=== PATIENT | male | born 1940 | race Caucasian/White ===

== ENCOUNTER 2016-05-03 10:04 | Inpatient (IN) | payer MEDICARE ==
[2016-05-03] MEDS ORDERED: HYDROmorphone INJ* 1 MG/ML CARPUJECT SYRINGE IV ONE (10:48)
[2016-05-03] MEDS ORDERED: Ondansetron INJ* 2 MG/ML VIAL IV ONE (10:48)
[2016-05-03] MEDS ORDERED: Acetaminophen TAB* 325 MG PO ONE (10:48)
--- NOTE | 2016-05-03 11:15 | RAD ---
Indication: Sepsis. Single frontal view of the chest performed at 1100 hours was reviewed. Patient has not had a recent clinical breast exam. No mediastinal shift is noted. Heart is of normal size and configuration. There is some mild interstitial prominence consistent with vascular congestion.. IMPRESSION: INTERSTITIAL EDEMA CONSISTENT WITH VASCULAR CONGESTION. CARDIOMEGALY.
[2016-05-03 11:59] LABS: Add Diff/Slide Review? Manual Diff Added; Comments Flag Yes; Hematocrit 42 % (42-52); Hemoglobin 13.9 g/dl (14.0-18.0); Mean Corpuscular HGB Conc 33 g/dl (31-36); Mean Corpuscular Hemoglobin 29 pg (27-31); Mean Corpuscular Volume 89 fL (80-94); Mean Platelet Volume 8 um3 (7.4-10.4); Red Blood Count 4.77 10^6/ul (4.0-5.4); Red Cell Distribution Width 14 % (10.5-15); White Blood Count 5.9 10^3/ul (3.5-10.8)
[2016-05-03 12:02] LABS: Urine Bacteria Absent (Absent); Urine Bilirubin Negative (Negative); Urine Glucose Negative (Negative); Urine Nitrite Negative (Negative)
[2016-05-03 12:22] LABS: Albumin 3.5 g/dL (3.2-5.2); BUN/Creatinine Ratio 10.4 (8-20); Calcium 8.5 mg/dL (8.6-10.3); EGFR African American 98.7 (>60); EGFR Non-African American 76.8 (>60); Globulin 2.4 g/dL (2-4); Potassium 3.2 mmol/L (3.5-5.0); Total Bilirubin 2.9 mg/dL (0.2-1.0); Total Protein 5.9 g/dL (6.4-8.9)
[2016-05-03 12:24] LABS: Troponin I 0.01 ng/mL (<0.04)
[2016-05-03 12:29] LABS: Immature Granulocytes 8 % (0-9); Metamyelocytes % 1 % (0-2); Neutrophil % 90 % (38-83); RBC Morphology Normal (Normal)
[2016-05-03] MEDS ORDERED: Piperac/Tazob 3.375 gm in NS* 3.375 GM/100 ML BAG IVPB ONE ×2 (12:56→13:04)
[2016-05-03] MEDS ORDERED: NS 0.9% 1000 ML* 2,000 ML IV ONE (12:56)
[2016-05-03] MEDS ORDERED: Iohexol 300* (CONTRAST) 10 ML SDV IV ONE (13:20)
[2016-05-03] MEDS ORDERED: NS 0.9% 1000 ML* 1,000 ML IV ONE ×2 (13:51→23:45)
--- NOTE | 2016-05-03 13:57 | RAD ---
CLINICAL HISTORY: Abdominal pain COMPARISON: March 27, 2016 TECHNIQUE: Multiple contiguous axial CT scans were obtained of the abdomen and pelvis after the administration of intravenous contrast. Coronal and sagittal multiplanar reformations are submitted for review. Oral contrast was administered. Delayed images were obtained through the abdomen FINDINGS: LUNG BASES: There is dependent atelectasis bilaterally. LIVER: The liver is normal in shape, size, contour, and attenuation. BILE DUCTS: There is pneumobilia. There is moderate intrahepatic biliary dilatation. There is dilatation of the common duct up to 1.5 cm in size. A very stent is noted extending from the distal common duct to the duodenum. GALLBLADDER: Multiple gallstones are noted. There is no pericholecystic inflammatory change. PANCREAS: There is ill-defined soft tissue extending from the head of the pancreas along the superior mesenteric artery consistent with the mass noted on previous examinations.. There is mild pancreatic ductal dilatation. SPLEEN: Normal in size and appearance. UPPER GI TRACT: Evaluation of the gastrointestinal tract is limited by incomplete gastric distention. The upper GI tract is unremarkable. SMALL BOWEL AND MESENTERY: There is mild distention of the duodenum and proximal jejunum, without dilatation. Oral contrast reaches the distal jejunum. COLON: The colon is normal in contour, course, caliber. There is no pericolonic inflammatory change. ADRENALS: Normal bilaterally. KIDNEYS: The kidneys are normal in shape, size, contour, and axis. There is no hydronephrosis or nephrolithiasis. BLADDER: The bladder is smooth in contour. PELVIC ORGANS: The prostate is diffusely enlarged. The seminal vesicles are symmetric. AORTA: There is calcific atherosclerotic disease of the abdominal aorta and its branches, without aneurysmal dilatation IVC: Unremarkable LYMPH NODES: There are multiple subcentimeter short axis retroperitoneal lymph nodes ABDOMINAL WALL: There is no evidence for abdominal wall hernia. BONES AND SOFT TISSUES: Degenerative changes are noted of the spine OTHER: None IMPRESSION: 1. WHEN COMPARED TO MARCH 27, 2016, THERE IS INCREASING EXTRAHEPATIC AND INTRAHEPATIC BILIARY DILATATION, WITH PNEUMOBILIA. A BILIARY STENT IS NOTED. 2. AGAIN NOTED IS ILL-DEFINED SOFT TISSUE PANCREAS HEAD CONSISTENT WITH THE HISTORY OF PANCREATIC NEOPLASM. THERE IS MILD PANCREATIC DUCTAL DILATATION. 3. ATHEROSCLEROSIS. 4. MILD DISTENTION OF THE DUODENUM AND PROXIMAL SMALL BOWEL, WITHOUT DILATATION TO SUGGEST OBSTRUCTION. 5. CHOLELITHIASIS PRELIMINARY FINDINGS WERE DISCUSSED WITH DR. SCHERER AT APPROXIMATELY 1:54 PM ON MAY 03, 2016
--- NOTE | 2016-05-03 14:32 | ED ---
Jameel Lu Adam, scribed for Robert Riggs MD on 05/03/16 at 1031 . Abdominal Pain/Male - HPI Summary HPI Summary: Pt is a 75 year old male presenting with worsening abdominal pain since last night. He was diagnosed with pancreatic cancer last month and started chemo 7 days ago. He describes the pain as sharp and diffuse throughout his abdomen. Palpation aggravates the pain. Pt also reports 6 episodes of vomiting this morning and he states that he is still nauseous at this time. - History of Current Complaint Stated Complaint: VOMITING, ABD PAIN Time Seen by Provider: 05/03/16 10:11 Hx Obtained From: Patient Onset/Duration: Gradual Onset, Lasting Hours, Still Present Timing: Constant Severity Initially: Mild Severity Currently: Moderate Location: Diffuse Radiates: No Character: Sharp Aggravating Factor(s): Nothing Alleviating Factor(s): Nothing Associated Signs And Symptoms: Positive: Nausea, Vomiting - Allergies/Home Medications Allergies/Adverse Reactions: Allergies Allergy/AdvReac Type Severity Reaction Status Date / Time No Known Allergies Allergy Verified 03/27/16 08:31 Home Medications: Home Medications Ondansetron TAB* [Zofran Tab*] 4 mg PO Q4HR PRN 05/03/16 [History Confirmed ] Prochlorperazine TAB* [Compazine Tab*] 10 mg PO Q6H PRN 05/03/16 [History Confirmed 05/03/16] PMH/Surg Hx/FS Hx/Imm Hx Endocrine/Hematology History: Denies: Hx Diabetes Cardiovascular History: Reports: Hx Hypercholesterolemia Denies: Hx Hypertension - Surgical History Surgery Procedure, Year, and Place: eyes, STENT 03/21/16 Infectious Disease History: Denies: Traveled Outside the [place] in Last 30 Days - Family History Family History: No FHx hyperlipidemia. - Social History Occupation: Retired Lives: With Family - Alcohol Use: Occasionally Hx Substance Use: No Substance Use Type: Reports: None Hx Tobacco Use: Yes Smoking Status (MU): Light Every Day Tobacco Smoker Type: Cigarettes Length of Time of Smoking/Using Tobacco: 3 Have You Smoked in the Last Year: Yes Review of Systems Positive: Fever Positive: Abdominal Pain, Vomiting, Nausea All Other Systems Reviewed And Are Negative: Yes Physical Exam Triage Information Reviewed: Yes Vital Signs On Initial Exam: Initial Vitals Temp Pulse Resp BP Pulse Ox 102.5 F 105 30 138/75 95 05/03/16 10:33 05/03/16 10:33 05/03/16 10:33 05/03/16 10:33 05/03/16 10:33 Vital Signs Reviewed: Yes Appearance: Positive: Well-Appearing, No Pain Distress Skin: Positive: Warm, Skin Color Reflects Adequate Perfusion, Dry. Negative: Jaundiced Head/Face: Positive: Normal Head/Face Inspection Eyes: Positive: Normal ENT: Positive: Normal ENT inspection Neck: Positive: Supple, Nontender Respiratory/Lung Sounds: Positive: Clear to Auscultation, Breath Sounds Present Cardiovascular: Positive: RRR Abdomen Description: Positive: Guarding - Voluntary, Other: - Diffuse tenderness Bowel Sounds: Positive: Present Musculoskeletal: Positive: Normal Neurological: Positive: Normal Psychiatric: Positive: Normal, Affect/Mood Appropriate Diagnostics - Vital Signs Vital Signs Temp Pulse Resp BP Pulse Ox 05/03/16 13:44 82/50 05/03/16 13:30 98 86/55 91 05/03/16 13:03 101 85/48 94 05/03/16 13:00 105 84/49 94 05/03/16 12:57 102.2 F 05/03/16 12:55 107 93/54 93 05/03/16 12:53 106 93 05/03/16 11:33 24 05/03/16 10:51 96 05/03/16 10:33 102.5 F 105 30 138/75 95 - Laboratory Lab Results: Lab Results 05/03/16 05/03/16 05/03/16 Range/Units 11:30 11:30 11:30 WBC 5.9 (3.5-10.8) 10^3/ul RBC 4.77 (4.0-5.4) 10^6/ul Hgb 13.9 L (14.0-18.0) g/dl Hct 42 (42-52) % MCV 89 (80-94) fL MCH 29 (27-31) pg MCHC 33 (31-36) g/dl RDW 14 (10.5-15) % Plt Count 125 L (150-450) 10^3/ul MPV 8 (7.4-10.4) um3 Immature Gran % (Auto) 8 (0-9) % Absolute Neuts (auto) 5.8 (1.5-7.7) 10^3/ul Absolute Lymphs (auto) 0.1 L (1.0-4.8) 10^3/ul Absolute Monos (auto) 0 (0-0.8) 10^3/ul Absolute Eos (auto) 0 (0-0.6) 10^3/ul Absolute Basos (auto) 0 (0-0.2) 10^3/ul Absolute Nucleated RBC 0 10^3/ul Neutrophils % 90 H (38-83) % Band Neutrophils % 7 (0-8) % Lymphocytes % 2 L (25-47) % Metamyelocytes % 1 (0-2) % Normal RBC Morphology Normal (Normal) INR (Anticoag Therapy) 1.18 H (0.89-1.11) Sodium (133-145) mmol/L Potassium (3.5-5.0) mmol/L Chloride (101-111) mmol/L Carbon Dioxide (22-32) mmol/L Anion Gap (2-11) mmol/L BUN (6-24) mg/dL Creatinine (0.67-1.17) mg/dL Est GFR ( Amer) (>60) Est GFR (Non-Af Amer) (>60) BUN/Creatinine Ratio (8-20) Glucose (70-100) mg/dL Lactic Acid (0.5-2.0) mmol/L Calcium (8.6-10.3) mg/dL Total Bilirubin (0.2-1.0) mg/dL AST (13-39) U/L ALT (7-52) U/L Alkaline Phosphatase (34-104) U/L Troponin I (<0.04) ng/mL Total Protein (6.4-8.9) g/dL Albumin (3.2-5.2) g/dL Globulin (2-4) g/dL Albumin/Globulin Ratio (1-3) Lipase (11.0-82.0) U/L Urine Color Nell Urine Appearance Clear Urine pH 5.0 (5-9) Ur Specific [place] 1.013 (1.010-1.030) Urine Protein Negative (Negative) Urine Ketones Negative (Negative) Urine Blood 1+ H (Negative) Urine Nitrate Negative (Negative) Urine Bilirubin Negative (Negative) Urine Urobilinogen Negative (Negative) Ur Leukocyte Esterase Negative (Negative) Urine WBC (Auto) Absent (Absent) Urine RBC (Auto) 1+(3-5/hpf) H (Absent) Urine Bacteria Absent (Absent) Urine Glucose Negative (Negative) 05/03/16 05/03/16 Range/Units 11:30 11:30 WBC (3.5-10.8) 10^3/ul RBC (4.0-5.4) 10^6/ul Hgb (14.0-18.0) g/dl Hct (42-52) % MCV (80-94) fL MCH (27-31) pg MCHC (31-36) g/dl RDW (10.5-15) % Plt Count (150-450) 10^3/ul MPV (7.4-10.4) um3 Immature Gran % (Auto) (0-9) % Absolute Neuts (auto) (1.5-7.7) 10^3/ul Absolute Lymphs (auto) (1.0-4.8) 10^3/ul Absolute Monos (auto) (0-0.8) 10^3/ul Absolute Eos (auto) (0-0.6) 10^3/ul Absolute Basos (auto) (0-0.2) 10^3/ul Absolute Nucleated RBC 10^3/ul Neutrophils % (38-83) % Band Neutrophils % (0-8) % Lymphocytes % (25-47) % Metamyelocytes % (0-2) % Normal RBC Morphology (Normal) INR (Anticoag Therapy) (0.89-1.11) Sodium 137 (133-145) mmol/L Potassium 3.2 L (3.5-5.0) mmol/L Chloride 107 (101-111) mmol/L Carbon Dioxide 21 L (22-32) mmol/L Anion Gap 9 (2-11) mmol/L BUN 10 (6-24) mg/dL Creatinine 0.96 (0.67-1.17) mg/dL Est GFR ( Amer) 98.7 (>60) Est GFR (Non-Af Amer) 76.8 (>60) BUN/Creatinine Ratio 10.4 (8-20) Glucose 123 H (70-100) mg/dL Lactic Acid 3.6 H* (0.5-2.0) mmol/L Calcium 8.5 L (8.6-10.3) mg/dL Total Bilirubin 2.90 H (0.2-1.0) mg/dL AST 192 H (13-39) U/L ALT 167 H (7-52) U/L Alkaline Phosphatase 310 H (34-104) U/L Troponin I 0.01 (<0.04) ng/mL Total Protein 5.9 L (6.4-8.9) g/dL Albumin 3.5 (3.2-5.2) g/dL Globulin 2.4 (2-4) g/dL Albumin/Globulin Ratio 1.5 (1-3) Lipase 63 (11.0-82.0) U/L Urine Color Urine Appearance Urine pH (5-9) Ur Specific [place] (1.010-1.030) Urine Protein (Negative) Urine Ketones (Negative) Urine Blood (Negative) Urine Nitrate (Negative) Urine Bilirubin (Negative) Urine Urobilinogen (Negative) Ur Leukocyte Esterase (Negative) Urine WBC (Auto) (Absent) Urine RBC (Auto) (Absent) Urine Bacteria (Absent) Urine Glucose (Negative) Result Diagrams: 05/03/16 11:30 05/03/16 11:30 Lab Statement: Any lab studies that have been ordered have been reviewed, and results considered in the medical decision making process. - Radiology CXR Radiology Interpretation Completed By: Radiologist - IMPRESSION: INTERSTITIAL EDEMA CONSISTENT WITH VASCULAR CONGESTION. CARDIOMEGALY. - Additional Comments Diagnostic Additional Comments: Lactic Acid - 3.6 Troponin I - 0.01 Abdominal Pain Fem Course/Dx - Course Course Of Treatment: Mr. Cook presented with about 12 hours of abdominal pain. He pointed to his epigastrium but was tender diffusely with voluntary guarding. He was febrile and tachycardic but with a normal WBC's. This could be because of recent chemo. He was given antibiotics and fluids but his pressure dropped here in the context of his heart rate imroving a little. A CT was obtained and showed pneumobilia and advancement of his biliary ductal dilation in spite of a stent. - Diagnoses Provider Diagnoses: Abdominal pain, Pneumobilia, Sepsis - Provider Notifications Discussed Care Of Patient With: Dr. Dial at 13:55. Patient will be admitted. Instructed by Provider To: Admit As Inpatient Discharge - Discharge Plan Condition: Stable Disposition: ADMITTED TO [facility] Patient Education Materials: Abdominal Pain (ED) The documentation as recorded by the Jameel joyner Adam accurately reflects the service I personally performed and the decisions made by me, Robert Riggs MD.
[2016-05-03] MEDS ORDERED: Ibuprofen TAB* 400 MG PO PRN (16:16)
[2016-05-03] MEDS ORDERED: Ondansetron INJ* 2 MG/ML VIAL IV PRN (16:18)
[2016-05-03 16:39] LABS: Magnesium 1.5 mg/dL (1.9-2.7)
[2016-05-03] MEDS ORDERED: Pantoprazole IV* 40 MG IV SCH (17:00)
[2016-05-03] MEDS ORDERED: NS 0.9% w/ 40 Meq KCL 1000 ML* 1,000 ML IV SCH (17:00)
[2016-05-03] MEDS: Piperac/Tazob 3.375 gm in NS* 3.375 GM/100 ML BAG IVPB SCH (18:14)
[2016-05-03] MEDS ORDERED: Magnesium Sulfate 2 GM IV* 2 GM/50 ML BAG IVPB ONE ×2 (18:30→22:00)
[2016-05-03] MEDS: Pantoprazole IV* 40 MG IV SCH (19:59)
[2016-05-03] MEDS: Heparin VIAL(*) 5000 UNITS/ML VIAL (FIVE THOUSAND) SUBCUT SCH (22:03)
--- NOTE | 2016-05-03 23:28 | CONS ---
GASTROENTEROLOGY CONSULT: DATE: 05/03/16 CONSULTING PHYSICIANS: Kvng Quiñones, Garo Dial; Candy Ramos NP.* REASON FOR CONSULTATION: Upper abdominal pain, temperature of 102 and a rise in LFT's 8 days after receiving an initial dose of chemotherapy for pancreatic cancer. HISTORY: This 75-year-old man admitted with obstructive jaundice 6 weeks ago had adenocarcinoma on biliary cytology during an ERCP with placement of an 8.5- [place] stent. He underwent initial chemotherapy 8 days ago with Gemzar and a Taxol product. He and his state that he had been doing well since placement of his biliary stent right through the holidays. Last night, he developed some epigastric pain. He was not aware of a fever until it was measured in the emergency room this morning where he came after the pain increased. At the time the stent was placed, there was a distal common duct stricture and a fullness in the head of the pancreas on CT. His gallbladder is still in place and there are stones in it. PAST MEDICAL HISTORY: 1. Smoking. 2. Pancreatic cancer. 3. Chronic gastroesophageal reflux disease, on omeprazole. 4. Hypothyroidism. 5. Hypercholesterolemia. SOCIAL HISTORY: He has been for about 6 months, though knew her for 34 years. He just resumed smoking within the past year. He just recently retired. REVIEW OF SYSTEMS: No history of rash, numbness, tingling, palpitations, syncope, GA, headaches, hemiparesis, jaundice, hematuria or rectal bleeding. EXAM: He appears comfortable at this time, afebrile with pulse 88, blood pressure 99/64, oxygen saturation 98%. HEENT exam is unremarkable. He has no adenopathy. Lungs are clear and heart sounds are normal. The abdomen is symmetric, with active normal bowel sounds. The abdomen is soft except in the right lateral area along the costal margin and the right lateral upper quadrant where there is significant tenderness to deep palpation. Extremities show no edema. Neurologic is nonfocal. LABS: CBC shows hemoglobin 13.9, hematocrit 42, MCV 89, white count 5.9 compared to 6.3 on the day of chemo, which was 04/25/16. Chemistries show bilirubin 2.9, AST 192, ALT 167, alkaline phosphatase 310. Albumin 3.5, lipase 63. Vitamin B12 less than 50, 03/12/16. IMPRESSION: This 75-year-old man who 6 weeks ago had adenocarcinoma found on a bile duct brushing with placement of biliary stent now 8 days after chemotherapy presents with fever and upper abdominal pain. There are a variety of possibilities. Clogging of the common duct stent is a possibility, although usually it does not occur this soon after placement. There is a possibility of displacement or dislodgment movement of the stents and this will be evaluated with an additional film. He has been deemed not an operative candidate for his pancreatic cancer and thus if the stent needs to be replaced, a metal permanent stent would be the choice. Also possible is acute cholecystitis, should fit with the varied lateral tenderness he displayed. He has been placed on Zosyn appropriately enough and his course will be followed. His vitamin B12 level will be reassessed. [id number]/[facility] #: [id number] [facility]ellee
[2016-05-03] MEDS: Morphine INJ* 10 MG/ML 1 ML CARPUJECT IV PRN (23:56)
[2016-05-04] MEDS: Piperac/Tazob 3.375 gm in NS* 3.375 GM/100 ML BAG IVPB SCH ×4 (01:04→23:59)
[2016-05-04] MEDS: Levothyroxine TAB* 100 MCG TAB PO SCH (05:55)
[2016-05-04] MEDS: Heparin VIAL(*) 5000 UNITS/ML VIAL (FIVE THOUSAND) SUBCUT SCH (05:55)
[2016-05-04 06:12] LABS: Hematocrit 37 % (42-52); Mean Corpuscular HGB Conc 33 g/dl (31-36); Mean Corpuscular Hemoglobin 29 pg (27-31); Mean Corpuscular Volume 89 fL (80-94); Mean Platelet Volume 8 um3 (7.4-10.4); Red Blood Count 4.12 10^6/ul (4.0-5.4); Red Cell Distribution Width 14 % (10.5-15); White Blood Count 15.4 10^3/ul (3.5-10.8)
[2016-05-04 06:27] LABS: BUN/Creatinine Ratio 12.9 (8-20); Calcium 7.7 mg/dL (8.6-10.3); EGFR African American 93.1 (>60); EGFR Non-African American 72.4 (>60); Globulin 2.1 g/dL (2-4); Magnesium 2.2 mg/dL (1.9-2.7); Potassium 4.1 mmol/L (3.5-5.0); Total Bilirubin 4.8 mg/dL (0.2-1.0); Total Protein 5.1 g/dL (6.4-8.9)
[2016-05-04 06:29] LABS: Add Diff/Slide Review? Slide Review Added; Comments Flag Yes
[2016-05-04] MEDS ORDERED: NS 0.9% 1000 ML* 1,000 ML IV SCH (07:45)
--- NOTE | 2016-05-04 08:00 | RAD ---
INDICATION: Check bile duct stent COMPARISON: CT May 03, 2016 TECHNIQUE: Erect and supine views of the abdomen are submitted. FINDINGS: Bones: There are no acute bony findings. Soft tissues: The soft tissues appear normal. The psoas margins are sharp. Bowel gas pattern: Normal. There is residual contrast within the colon Calcifications: There are no abnormal calcifications. Other: The position of the bile duct stent is unchanged relative to the scanogram from the CT scan from the previous day IMPRESSION: NO CHANGE IN POSITION OF THE BILE DUCT STENT.
[2016-05-04] MEDS: Morphine INJ* 10 MG/ML 1 ML CARPUJECT IV PRN (08:04)
--- NOTE | 2016-05-04 08:04 | PN ---
Progress Note - Progress Note SOAP: Subjective: RUQ pain. no nausea or vomiting. no bowel movements over night. continued hypotension Objective: Vital Signs Temp Pulse Resp BP Pulse Ox 99.1 F 80 16 91/59 97 05/04/16 07:18 05/04/16 07:18 05/04/16 07:18 05/04/16 07:18 05/04/16 07:18 lying flat in bed in NAD perr eomi mild scleral icteris CTA bl s1 s2 nl RUQ ttp, +guarding, dec bs no LE edema A+O x 3, nonfocal neurological exam Laboratory Results - last 24 hr 05/03/16 05/03/16 05/03/16 11:30 11:30 11:30 WBC 5.9 RBC 4.77 Hgb 13.9 L Hct 42 MCV 89 MCH 29 MCHC 33 RDW 14 Plt Count 125 L MPV 8 Immature Gran % (Auto) 8 Neut % (Auto) Lymph % (Auto) [place] % (Auto) Eos % (Auto) Baso % (Auto) Absolute Neuts (auto) 5.8 Absolute Lymphs (auto) 0.1 L Absolute Monos (auto) 0 Absolute Eos (auto) 0 Absolute Basos (auto) 0 Absolute Nucleated RBC 0 Neutrophils % 90 H Band Neutrophils % 7 Lymphocytes % 2 L Metamyelocytes % 1 Nucleated RBC % Normal RBC Morphology Normal INR (Anticoag Therapy) 1.18 H APTT Sodium Potassium Chloride Carbon Dioxide Anion Gap BUN Creatinine Est GFR ( Amer) Est GFR (Non-Af Amer) BUN/Creatinine Ratio Glucose Lactic Acid Calcium Magnesium Total Bilirubin AST ALT Alkaline Phosphatase Troponin I Total Protein Albumin Globulin Albumin/Globulin Ratio Lipase Vitamin B12 Urine Color Nell Urine Appearance Clear Urine pH 5.0 Ur Specific [place] 1.013 Urine Protein Negative Urine Ketones Negative Urine Blood 1+ H Urine Nitrate Negative Urine Bilirubin Negative Urine Urobilinogen Negative Ur Leukocyte Esterase Negative Urine WBC (Auto) Absent Urine RBC (Auto) 1+(3-5/hpf) H Urine Bacteria Absent Urine Glucose Negative 05/03/16 05/03/16 05/03/16 11:30 11:30 17:16 WBC RBC Hgb Hct MCV MCH MCHC RDW Plt Count MPV Immature Gran % (Auto) Neut % (Auto) Lymph % (Auto) [place] % (Auto) Eos % (Auto) Baso % (Auto) Absolute Neuts (auto) Absolute Lymphs (auto) Absolute Monos (auto) Absolute Eos (auto) Absolute Basos (auto) Absolute Nucleated RBC Neutrophils % Band Neutrophils % Lymphocytes % Metamyelocytes % Nucleated RBC % Normal RBC Morphology INR (Anticoag Therapy) APTT Sodium 137 Potassium 3.2 L Chloride 107 Carbon Dioxide 21 L Anion Gap 9 BUN 10 Creatinine 0.96 Est GFR ( Amer) 98.7 Est GFR (Non-Af Amer) 76.8 BUN/Creatinine Ratio 10.4 Glucose 123 H Lactic Acid 3.6 H* 2.2 H* Calcium 8.5 L Magnesium 1.5 L Total Bilirubin 2.90 H AST 192 H ALT 167 H Alkaline Phosphatase 310 H Troponin I 0.01 Total Protein 5.9 L Albumin 3.5 Globulin 2.4 Albumin/Globulin Ratio 1.5 Lipase 63 Vitamin B12 Urine Color Urine Appearance Urine pH Ur Specific [place] Urine Protein Urine Ketones Urine Blood Urine Nitrate Urine Bilirubin Urine Urobilinogen Ur Leukocyte Esterase Urine WBC (Auto) Urine RBC (Auto) Urine Bacteria Urine Glucose 05/04/16 05/04/16 05/04/16 05:33 05:33 05:33 WBC 15.4 H RBC 4.12 Hgb 12.0 L Hct 37 L MCV 89 MCH 29 MCHC 33 RDW 14 Plt Count 180 MPV 8 Immature Gran % (Auto) Neut % (Auto) 90.8 H Lymph % (Auto) 6.2 L Wright % (Auto) 2.7 Eos % (Auto) 0.2 Baso % (Auto) 0.1 Absolute Neuts (auto) 14.0 H Absolute Lymphs (auto) 1.0 Absolute Monos (auto) 0.4 Absolute Eos (auto) 0 Absolute Basos (auto) 0 Absolute Nucleated RBC 0 Neutrophils % Band Neutrophils % Lymphocytes % Metamyelocytes % Nucleated RBC % 0 Normal RBC Morphology INR (Anticoag Therapy) 1.50 H APTT 32.5 Sodium 137 Potassium 4.1 Chloride 109 Carbon Dioxide 22 Anion Gap 6 BUN 13 Creatinine 1.01 Est GFR ( Amer) 93.1 Est GFR (Non-Af Amer) 72.4 BUN/Creatinine Ratio 12.9 Glucose 75 Lactic Acid Calcium 7.7 L Magnesium 2.2 Total Bilirubin 4.80 H D AST 94 H ALT 134 H Alkaline Phosphatase 205 H Troponin I Total Protein 5.1 L Albumin 3.0 L Globulin 2.1 Albumin/Globulin Ratio 1.4 Lipase 24 Vitamin B12 174 L Urine Color Urine Appearance Urine pH Ur Specific [place] Urine Protein Urine Ketones Urine Blood Urine Nitrate Urine Bilirubin Urine Urobilinogen Ur Leukocyte Esterase Urine WBC (Auto) Urine RBC (Auto) Urine Bacteria Urine Glucose blood cultures 4/4 gram neg bacilli Aspirin (Aspirin Low Dose Tab*) 81 mg PO DAILY [facility] Cyanocobalamin (Vitamin B12 Tab*) 1,000 mcg PO DAILY [facility] Heparin Sodium (Porcine) (Heparin Flush Port (Ivad)*) 5 ml FLUSH DAILY [facility] Piperacillin Sod/Tazobactam Sod (Zosyn 3.375 Gm In Ns Premix*) 3.375 gm in 100 mls @ 25 mls/hr IVPB Q8H [facility] Last Admin: 05/04/16 01:04 Dose: 25 mls/hr Sodium Chloride (Ns 0.9% 1000 Ml*) 1,000 mls @ 250 mls/hr IV PER RATE [facility] Stop: 05/06/16 11:44 Phytonadione 1 mg/ Sodium (Chloride) 50.1 mls @ 100 mls/hr IV ONCE STA Stop: 05/04/16 08:28 Ibuprofen (Motrin Tab*) 400 mg PO Q6H PRN PRN Reason: pain/fever Levothyroxine Sodium (Synthroid Tab*) 100 mcg PO DAILY@0600 [facility] Last Admin: 05/04/16 05:55 Dose: 100 mcg Morphine Sulfate (Morphine Inj (Syringe)*) 5 mg IV Q6H PRN PRN Reason: pain Last Admin: 05/03/16 23:56 Dose: 5 mg Ondansetron HCl (Zofran Inj*) 4 mg IV Q4H PRN PRN Reason: nausea/vomitting Pantoprazole Sodium (Protonix Iv*) 40 mg IV 2000 [facility] Last Admin: 05/03/16 19:59 Dose: 40 mg Assessment: 75 yo M w unresectable pancreatic cancer sp biliary stent 03/21/2016 sp gemcitabine/abraxance 9 days ago with fevers, transaminitis, RUQ pain and bacteremia. DDx includes cholangitis, clogged/infected stent or cholecystitis. He is hypotensive this AM but making urine and mentating well. His states that he was hypotensive on his last hospitalization as well. I have discussed his case with both Dr. Herman and Dr. Boyce. Plan: -transfer to ICU for closer monitoring, discussed with covering hospitalist -stat HIDA scan -hold all am meds, may need OR -vitamin K IV x 1 for increased INR -check fibrinogen -cont zosyn IV -increase IVFs to 250 cc/hr -IM B12 full code
[2016-05-04] MEDS ORDERED: Phytonadione INJ (Adult)* 1 MG in NS 0.9% 50 ML* 50 ML IV ONE (08:15)
[2016-05-04] MEDS: Cyanocobalamin INJ * 1,000 MCG/ML VIAL 1 ML VIAL IM SCH (08:52)
[2016-05-04] MEDS: Cyanocobalamin TAB* 500 MCG PO SCH ×2 (08:59→09:00)
[2016-05-04] MEDS: Aspirin Low Dose CHEW TAB* 81 MG PO SCH (09:00)
--- NOTE | 2016-05-04 11:21 | RAD ---
INDICATION: Question cholecystitis. Question patency of biliary stent COMPARISON: CT May 03, 2016 TECHNIQUE: Following the administration of 6.4 millicuries of technetium 99m mebrofenin, serial, static, anterior images of the abdomen were obtained at 5 minute increments for a period of one hour. FINDINGS: There is prompt uptake of radiopharmaceutical within the liver indicating normal hepatic function. The static images as well as a cine loop images fail to show activity within the gallbladder or the small bowel. A 20 to 30 minute delayed image likewise showed no activity outside the liver. IMPRESSION: THERE IS NO ACTIVITY WITHIN THE SMALL BOWEL OR GALLBLADDER. THESE FINDINGS WERE DISCUSSED WITH THE GASTROENTEROLOGY DEPARTMENT. THERE ARE TENTATIVE PLANS TO REPLACE THE BILIARY STENT.
[2016-05-04] MEDS ORDERED: Ondansetron INJ* 2 MG/ML VIAL IV PRN (13:02)
[2016-05-04] MEDS ORDERED: Acetaminophen TAB* 325 MG PO PRN (13:02)
[2016-05-04] MEDS ORDERED: fentaNYL* 50 MCG/ML 2 ML VIAL (100 MCG VIAL) IV PRN (13:02)
[2016-05-04] MEDS ORDERED: HYDROcodone/ACETAMIN 5-325 MG* 1 TAB PO PRN (13:02)
[2016-05-04] MEDS ORDERED: DiMENhydriNATE IV* 50 MG/ML VIAL IV PUSH PRN (13:02)
[2016-05-04] MEDS ORDERED: Famotidine IV* 10 MG/ML 2 ML (20 mg) ONE (13:17)
[2016-05-04] MEDS ORDERED: Dexamethasone IV* 4 MG/ML 1 ML (4 MG) ONE (13:17)
[2016-05-04] MEDS ORDERED: Lidocaine 2% MPF* 2 ML VIAL ONE (13:17)
[2016-05-04] MEDS ORDERED: Propofol* 10 MG/ML 20 ML BTL IV PUSH ONE (13:17)
[2016-05-04] MEDS ORDERED: fentaNYL* 50 MCG/ML 2 ML VIAL (100 MCG VIAL) ONE (13:18)
[2016-05-04] MEDS ORDERED: Midazolam* 1 MG/ML 2 ML VIAL (2 MG) ONE (13:18)
[2016-05-04] MEDS ORDERED: Rocuronium* 10 MG/ML VIAL ONE (13:18)
[2016-05-04] MEDS ORDERED: EPHEDrine (Pressors)* 50 MG/ML VIAL ONE (14:10)
[2016-05-04] MEDS ORDERED: Phenylephrine IV* 40 MCG/ML 10 ML SYRINGE ONE (14:10)
[2016-05-04] MEDS ORDERED: Naloxone* 0.4 MG/ML 1 ML VIAL ONE (15:02)
[2016-05-04] MEDS ORDERED: Flumazenil* 0.1 MG/ML 5 ML MDV ONE (15:03)
--- NOTE | 2016-05-04 15:38 | RAD ---
INDICATION: Pancreatic carcinoma. Biliary obstruction. COMPARISON: Abdomen May 04, 2016 FINDINGS: 4.2 minutes of fluoroscopy were provided for the gastroenterology department. Fluoroscopic spot imaging of the abdomen were obtained for operative control and show placement of a metallic wall stent in the common duct . CPT II Codes: 6045F (fluoro time doc)
[2016-05-04] MEDS: Pantoprazole IV* 40 MG IV SCH (20:20)
--- NOTE | 2016-05-04 23:23 | CONS ---
[facility] MEDICINE CONSULTATION REPORT: DATE OF CONSULTATION: 05/04/16 ATTENDING PHYSICIAN: Shelly Charles MD TRANSITIONING CARE TO: Jossie Carlisle MD (dictation provided by Natasha Castro NP) HISTORY OF PRESENT ILLNESS: Mr. Cook is a 75-year-old male who was immediately postop status post stent placement with ERCP and is unable to provide much detail. Information is obtained from family at the bedside and from the electronic medical record. Per the report, Mr. Cook was diagnosed with pancreatic cancer approximately 6 weeks ago, it is an adenocarcinoma. He had chemotherapy 9 days ago with gemcitabine and Abraxane. In addition to this , on 03/21/16, the patient had an ERCP with Dr. Herman and had a stent placement for obstructive jaundice. The patient's family reported that he had been doing well up until a few days before admission when he developed abdominal pain. In the emergency room, he had a fever to 102 and elevation in his LFTs. He was seen by Dr. Herman with plan for ERCP for evaluation of the previous placed stent. Mr. Cook had a HIDA scan on 05/04/16, which showed "there is no activity within the small bowel or gallbladder." The patient went for ERCP with Dr. Herman and it was found that the stent had been displaced and a new larger stent was placed. Note is made of significant pus draining during the procedure. Because of his cholangitis, Mr. Cook did develop bacteremia with E. Coli, sensitivities are pending. The patient has been on Zosyn for antibiotic coverage. In the immediate postoperative period, Mr. Cook was agitated but is now calm and his vital signs are stable once transitioned over into the intensive care unit. PAST MEDICAL HISTORY: 1. Pancreatic cancer, adenocarcinoma diagnosed 6 weeks ago, now status post chemotherapy 9 days ago with gemcitabine and Abraxane. 2. History of smoking. 3. GERD. 4. Hypothyroidism. 5. Hyperlipidemia. 6. History of stent placement to common bile duct on 03/21/16. MEDICATIONS: The patient was on no medications as outpatient. 1. He is currently on aspirin 81 mg daily. 2. Cyanocobalamin injections for vitamin B12 deficiency. 3. Lactated Ringer's 125 mL per hour. 4. Levothyroxine 100 mcg p.o. daily. 5. Morphine p.r.n. pain. 6. Ondansetron p.r.n. nausea. 7. Pantoprazole IV 40 mg p.o. daily. 8. Zosyn 3.375 g q.8 hours. ALLERGIES: No known drug allergies. FAMILY HISTORY: Unobtainable. SOCIAL HISTORY: Per the report, the patient resumed smoking over the past year. There is no report of current alcohol or drug use. He lives with his who is his healthcare proxy. REVIEW OF SYSTEMS: Unobtainable. PHYSICAL EXAMINATION: Vital Signs: Blood pressure 101/61, heart rate 84, temperature 98.1, respiratory rate 19, O2 saturation 95% currently on 5 L nasal cannula. General: Mr. Cook is lying in the bed. He is in no acute distress. He is resting with his eyes closed but awakens easily to voice. He is oriented to himself only. He moves all extremities equally and follows all commands. Heart: S1, S2. No murmur, rub, or gallop and regular. Lungs are clear to auscultation bilaterally with no accessory muscle use and good aeration. Abdomen: Soft with tenderness to palpation. Bowel sounds are positive. Extremities: No cyanosis or edema. Skin: Intact. DIAGNOSTIC STUDIES/LABORATORY DATA: WBC 5.9, this morning it was 15.4; hemoglobin today 12.0; hematocrit 37; platelet count 180. INR 1.50. Sodium 137 , potassium 4.1, chloride 109, serum bicarbonate 22, BUN 13, creatinine 1.01, glucose 75. Lactic acid on arrival was 3.6, it is now down to 1.2. Total bilirubin on arrival was 2.90, this morning was 4.80. His AST, ALT and alk phos have improved at 94, 134, and 205 respectively. His vitamin B12 level was 174. Urine shows no evidence of infection. Blood cultures are positive x4 for E. Coli. Chest x-ray from yesterday shows the following: "interstitial edema consistent with vascular congestion, cardiomegaly." Abdomen and pelvis CT from yesterday shows the following: "when compared to 11/03, there was increasing extrahepatic and intrahepatic biliary dilatation with pneumobilia, a biliary stent is noted. Again, noted is ill-defined soft tissue pancreas head consistent with a history of pancreatic neoplasm. There was mild pancreatic ductal dilatation, atherosclerosis, mild distention of the duodenum and proximal small bowel without dilatation to suggest obstruction and cholelithiasis." Abdomen x-ray from 05/04/16 is as follows: "no change in position of the bile duct stent." HIDA scan from today shows "there is no activity within the small bowel or gallbladder." ASSESSMENT: Mr. Cook is a 75-year-old male diagnosed with pancreatic cancer approximately 6 weeks ago and now 9 days status post chemotherapy who presents today to the hospital on 05/03/16 with concern for abdominal pain and fever. The patient had had a stent placed on 03/21/16 for obstructive jaundice. He is now status post repeat ERCP with new stent placement with note of previous stent being displaced and significant amount of pus noted during the procedure. Hospital Medicine has been consulted to take over care for the patient with cholangitis status post stent placement. PLAN: 1. Cholangitis. Continue zosyn. We will continue with IV fluids. His blood pressure and heart rate are stable at this point. He is on Lactated Ringer's 125 mL per hour. His lactic acid had been elevated on admission but was normal on last check. Patient is at high risk for decompensation and will be monitored closely in the ICU. 2. E. Coli bacteremia. Again, continue Zosyn as per above and IV fluids. 3. Hypothyroidism. Continue levothyroxine. 4. History of pancreatic cancer. Further management per Oncology. 5. DVT prophylaxis with SCDs. 6. Code status is full code. We will review code status with the patient and family when he is more awake. TIME SPENT: Approximately 60 minutes were spent in the consultation of this patient, more than half the time with the patient and his family at the bedside reviewing the events leading up to and of this hospitalization, during this hospitalization, performing the physical examination, and reviewing my plan of care. Again, care of the patient was transitioned over to Hospital Medicine team. NATASHA CASTRO, CESILIA [id number]/[facility] #: [id number] LIVAN
[2016-05-05] MEDS: Levothyroxine TAB* 100 MCG TAB PO SCH (05:41)
[2016-05-05 05:47] LABS: Hematocrit 34 % (42-52); Mean Corpuscular HGB Conc 33 g/dl (31-36); Mean Corpuscular Hemoglobin 29 pg (27-31); Mean Corpuscular Volume 88 fL (80-94); Red Blood Count 3.79 10^6/ul (4.0-5.4); Red Cell Distribution Width 14 % (10.5-15); White Blood Count 11.1 10^3/ul (3.5-10.8)
[2016-05-05 05:55] LABS: Comments Flag Yes
[2016-05-05 05:57] LABS: Add Diff/Slide Review? Slide Review Added; Albumin 2.7 g/dL (3.2-5.2); BUN/Creatinine Ratio 17.1 (8-20); Calcium 8.2 mg/dL (8.6-10.3); Direct Bilirubin 1.5 mg/dL (0.03-0.18); EGFR African American 118.4 (>60); EGFR Non-African American 92.1 (>60); Globulin 2.3 g/dL (2-4); Indirect Bilirubin 0.9 mg/dL (0.3-1.0); Potassium 4.2 mmol/L (3.5-5.0); Total Bilirubin 2.4 mg/dL (0.2-1.0)
[2016-05-05 06:25] LABS: Mean Platelet Volume 8 um3 (7.4-10.4)
--- NOTE | 2016-05-05 07:25 | PRO ---
DATE OF PROCEDURE: 05/04/16 REFERRING PHYSICIAN : Michael Whitney. PROCEDURE: ERCP with removal of plastic stent and insertion of Wallstent into common bile duct. INDICATION: This 75-year-old man with pancreatic cancer who received his first round of chemotherapy 9 days ago presented with right upper quadrant pain, fever and blood cultures are positive for gram negative. His bilirubin had risen to 4.9. Imaging does not suggest cholecystitis. His biliary stent is still in the right upper quadrant, but appears to have migrated distally somewhat. After discussion with Dr. Charles and Dr. Boyce and Dr. Catalan, ERCP with anesthesia assistance was planned. ENDOSCOPIST: Dr. Herman. Anesthesia - Dr. Catalan FINDINGS: a mildly jaundiced older man in no overt distress, although his blood pressure is in the high 70s to low 80s systolic, a pulse of about 80. ERCP: Esophagus - 30% views are normal. Stomach - 70% to 80% views, summing together, insertion or withdrawal were normal. The pylorus is wide open and normal. Duodenum - normal mucosa. The plastic stent is three-fourths the way out of the papilla with some little bit of white pussy mucoid material in that area. The plastic stent is grasped with a snare and everything is closed out to the mouth. The snare is seen to be clogged by pus, but no other particular concretion of material. The scope is reinserted. A guide wire was inserted in the common duct. It required some manipulation to have the guide wire and are high up in the liver but this was accomplished. Guide wire was then locked and Wallstent inserted over the guide wire carefully monitoring the introducer and sleeve keeping 3 "diamonds" from the duodenal wall external. Copious pus then discharged for quite some interval. The Wallstent was seen to be in good orientation heading up towards the hilum of the liver. IMPRESSION: 1. Cholangitis - clinical signs and the pus seen discharging. 2. Partially migrated stent - may indicate tumor shrinkage. 3. Wallstent - inserted and effective drainage appears to have been established. This should be effective for a year or more. [id number]/[facility] #: [id number] MTDD
[2016-05-05] MEDS: Morphine INJ* 10 MG/ML 1 ML CARPUJECT IV PRN (08:11)
[2016-05-05] MEDS: Aspirin Low Dose CHEW TAB* 81 MG PO SCH (09:42)
[2016-05-05] MEDS: Cyanocobalamin TAB* 500 MCG PO SCH (09:42)
[2016-05-05] MEDS: Cyanocobalamin INJ * 1,000 MCG/ML VIAL 1 ML VIAL IM SCH (09:43)
[2016-05-05] MEDS: Piperac/Tazob 3.375 gm in NS* 3.375 GM/100 ML BAG IVPB SCH ×3 (09:48→22:56)
--- NOTE | 2016-05-05 14:17 | PN ---
Subjective Date of Service: 05/05/16 Interval History: pt c/o mild epigastric discomfort Objective Active Medications: Aspirin (Aspirin Low Dose Tab*) 81 mg PO DAILY [facility] Last Admin: 05/05/16 09:42 Dose: 81 mg Cyanocobalamin (Vitamin B12 Tab*) 1,000 mcg PO DAILY [facility] Last Admin: 05/05/16 09:42 Dose: 1,000 mcg Cyanocobalamin (Vitamin B12 Inj *) 1,000 mcg IM Q24H [facility] Stop: 05/07/16 09:01 Last Admin: 05/05/16 09:43 Dose: 1,000 mcg Heparin Sodium (Porcine) (Heparin Flush Port (Ivad)*) 5 ml FLUSH DAILY [facility] Last Admin: 05/05/16 09:43 Dose: Not Given Piperacillin Sod/Tazobactam Sod (Zosyn 3.375 Gm In Ns Premix*) 3.375 gm in 100 mls @ 25 mls/hr IVPB Q8H [facility] Last Admin: 05/05/16 09:48 Dose: 25 mls/hr Lactated Ringer's (Lactated Ringers 1000 Ml Bag*) 1,000 mls @ 75 mls/hr IV PER RATE [facility] Levothyroxine Sodium (Synthroid Tab*) 100 mcg PO DAILY@0600 [facility] Last Admin: 05/05/16 05:41 Dose: 100 mcg Morphine Sulfate (Morphine Inj (Syringe)*) 5 mg IV Q6H PRN PRN Reason: pain Last Admin: 05/05/16 08:11 Dose: 5 mg Ondansetron HCl (Zofran Inj*) 4 mg IV Q4H PRN PRN Reason: nausea/vomitting Pantoprazole Sodium (Protonix Iv*) 40 mg IV 1999 [facility] Last Admin: 05/04/16 20:20 Dose: 40 mg Vital Signs 05/04/16 05/04/16 05/04/16 14:56 15:39 15:45 Temperature 98.6 F Pulse Rate 109 95 96 Respiratory 26 24 22 Rate Blood Pressure 177/83 111/66 105/64 (mmHg) O2 Sat by Pulse 91 93 92 Oximetry 05/04/16 05/04/16 05/04/16 15:50 15:55 16:15 Temperature 98.8 F 98.2 F Pulse Rate 95 97 91 Respiratory 22 22 20 Rate Blood Pressure 97/59 101/64 98/58 (mmHg) O2 Sat by Pulse 94 94 94 Oximetry 05/04/16 05/04/16 05/04/16 16:26 16:30 17:00 Temperature 98.1 F Pulse Rate 90 82 81 Respiratory 20 16 19 Rate Blood Pressure 101/61 100/62 111/73 (mmHg) O2 Sat by Pulse 89 95 96 Oximetry 05/04/16 05/04/16 05/04/16 17:30 18:00 18:30 Temperature Pulse Rate 81 76 Respiratory 19 18 16 Rate Blood Pressure 113/69 113/80 107/65 (mmHg) O2 Sat by Pulse 97 96 94 Oximetry 05/04/16 05/04/16 05/04/16 19:00 19:30 19:35 Temperature Pulse Rate Respiratory 14 14 Rate Blood Pressure 102/58 105/63 (mmHg) O2 Sat by Pulse 95 95 94 Oximetry 05/04/16 05/04/16 05/04/16 20:00 20:20 20:30 Temperature 97.6 F Pulse Rate 76 74 Respiratory 15 18 Rate Blood Pressure 109/68 125/73 (mmHg) O2 Sat by Pulse 95 96 Oximetry 05/04/16 05/04/16 05/04/16 20:52 20:54 21:00 Temperature Pulse Rate Respiratory 18 20 Rate Blood Pressure 110/73 (mmHg) O2 Sat by Pulse 97 96 Oximetry 05/04/16 05/04/16 05/04/16 21:30 22:00 22:21 Temperature Pulse Rate Respiratory 16 18 14 Rate Blood Pressure 112/70 120/78 (mmHg) O2 Sat by Pulse 93 94 Oximetry 05/04/16 05/04/16 05/04/16 22:30 23:00 23:30 Temperature Pulse Rate Respiratory 14 13 12 Rate Blood Pressure 109/71 103/62 100/64 (mmHg) O2 Sat by Pulse 94 96 96 Oximetry 05/05/16 05/05/16 05/05/16 00:00 00:01 00:09 Temperature 98.8 F Pulse Rate 60 Respiratory 17 15 13 Rate Blood Pressure 114/74 (mmHg) O2 Sat by Pulse 96 96 96 Oximetry 05/05/16 05/05/16 05/05/16 00:30 01:00 01:30 Temperature Pulse Rate 63 59 Respiratory 15 13 14 Rate Blood Pressure 125/84 109/76 114/74 (mmHg) O2 Sat by Pulse 95 94 95 Oximetry 05/05/16 05/05/16 05/05/16 02:00 02:30 03:00 Temperature Pulse Rate Respiratory 14 14 17 Rate Blood Pressure 118/81 120/76 115/84 (mmHg) O2 Sat by Pulse 96 95 96 Oximetry 05/05/16 05/05/16 05/05/16 03:30 04:00 04:28 Temperature 96.8 F Pulse Rate Respiratory 14 23 Rate Blood Pressure 119/75 122/83 (mmHg) O2 Sat by Pulse 97 97 Oximetry 05/05/16 05/05/16 05/05/16 04:30 04:31 05:00 Temperature Pulse Rate Respiratory 17 21 Rate Blood Pressure 127/83 127/84 (mmHg) O2 Sat by Pulse 93 Oximetry 05/05/16 05/05/16 05/05/16 05:06 06:00 07:00 Temperature Pulse Rate 58 Respiratory 16 15 15 Rate Blood Pressure (mmHg) O2 Sat by Pulse 96 95 Oximetry 05/05/16 05/05/16 05/05/16 07:57 08:00 08:30 Temperature 97.8 F Pulse Rate 65 63 70 Respiratory 20 22 20 Rate Blood Pressure 144/88 139/101 126/82 (mmHg) O2 Sat by Pulse 96 96 98 Oximetry 05/05/16 05/05/16 05/05/16 09:00 09:30 09:59 Temperature Pulse Rate 63 58 70 Respiratory 17 15 20 Rate Blood Pressure 131/79 133/84 (mmHg) O2 Sat by Pulse 94 95 96 Oximetry 05/05/16 05/05/16 05/05/16 10:00 10:30 11:00 Temperature Pulse Rate 70 Respiratory 17 16 Rate Blood Pressure 126/81 (mmHg) O2 Sat by Pulse 96 Oximetry 05/05/16 05/05/16 05/05/16 11:18 11:30 11:40 Temperature 98.8 F Pulse Rate 67 69 Respiratory 17 17 Rate Blood Pressure 128/79 130/87 (mmHg) O2 Sat by Pulse 96 97 Oximetry 05/05/16 05/05/16 05/05/16 12:00 12:30 13:00 Temperature Pulse Rate 66 67 68 Respiratory 18 19 20 Rate Blood Pressure 130/82 131/86 129/86 (mmHg) O2 Sat by Pulse 96 95 97 Oximetry 05/05/16 05/05/16 13:30 14:00 Temperature Pulse Rate 72 78 Respiratory 20 20 Rate Blood Pressure 140/81 127/88 (mmHg) O2 Sat by Pulse 98 96 Oximetry Oxygen Devices in Use Now: None Appearance: 75 yo M in NAD, AAOx3 Eyes: No Scleral Icterus, PERRLA Ears/Nose/Mouth/Throat: NL Teeth, Lips, Gums, Mucous Membranes Moist Neck: NL Appearance and Movements; NL JVP, Trachea Midline Respiratory: Symmetrical Chest Expansion and Respiratory Effort, Clear to Auscultation Cardiovascular: NL Sounds; No Murmurs; No JVD, RRR Abdominal: No Hepatosplenomegaly, - - soft, mild tenderness in RUQ, no rebound, no guarding, BS+ Lymphatic: No Cervical Adenopathy Extremities: No Edema, No Clubbing, Cyanosis Skin: No Rash or Ulcers, No Nodules or Sclerosis Neurological: Alert and Oriented x 3, NL Muscle Strength and Tone Result Diagrams: 05/05/16 05:28 05/05/16 05:28 Additional Lab and Data: Lab Results 05/03/16 05/03/16 05/03/16 Range/Units 11:30 11:30 11:30 WBC 5.9 (3.5-10.8) 10^3/ul RBC 4.77 (4.0-5.4) 10^6/ul Hgb 13.9 L (14.0-18.0) g/dl Hct 42 (42-52) % MCV 89 (80-94) fL MCH 29 (27-31) pg MCHC 33 (31-36) g/dl RDW 14 (10.5-15) % Plt Count 125 L (150-450) 10^3/ul MPV 8 (7.4-10.4) um3 Immature Gran % (Auto) 8 (0-9) % Absolute Neuts (auto) 5.8 (1.5-7.7) 10^3/ul Absolute Lymphs (auto) 0.1 L (1.0-4.8) 10^3/ul Absolute Monos (auto) 0 (0-0.8) 10^3/ul Absolute Eos (auto) 0 (0-0.6) 10^3/ul Absolute Basos (auto) 0 (0-0.2) 10^3/ul Absolute Nucleated RBC 0 10^3/ul Neutrophils % 90 H (38-83) % Band Neutrophils % 7 (0-8) % Lymphocytes % 2 L (25-47) % Metamyelocytes % 1 (0-2) % Normal RBC Morphology Normal (Normal) INR (Anticoag Therapy) 1.18 H (0.89-1.11) Sodium (133-145) mmol/L Potassium (3.5-5.0) mmol/L Chloride (101-111) mmol/L Carbon Dioxide (22-32) mmol/L Anion Gap (2-11) mmol/L BUN (6-24) mg/dL Creatinine (0.67-1.17) mg/dL Est GFR ( Amer) (>60) Est GFR (Non-Af Amer) (>60) BUN/Creatinine Ratio (8-20) Glucose (70-100) mg/dL Lactic Acid (0.5-2.0) mmol/L Calcium (8.6-10.3) mg/dL Total Bilirubin (0.2-1.0) mg/dL AST (13-39) U/L ALT (7-52) U/L Alkaline Phosphatase (34-104) U/L Troponin I (<0.04) ng/mL Total Protein (6.4-8.9) g/dL Albumin (3.2-5.2) g/dL Globulin (2-4) g/dL Albumin/Globulin Ratio (1-3) Lipase (11.0-82.0) U/L Urine Color Nell Urine Appearance Clear Urine pH 5.0 (5-9) Ur Specific [place] 1.013 (1.010-1.030) Urine Protein Negative (Negative) Urine Ketones Negative (Negative) Urine Blood 1+ H (Negative) Urine Nitrate Negative (Negative) Urine Bilirubin Negative (Negative) Urine Urobilinogen Negative (Negative) Ur Leukocyte Esterase Negative (Negative) Urine WBC (Auto) Absent (Absent) Urine RBC (Auto) 1+(3-5/hpf) H (Absent) Urine Bacteria Absent (Absent) Urine Glucose Negative (Negative) 05/03/16 05/03/16 Range/Units 11:30 11:30 WBC (3.5-10.8) 10^3/ul RBC (4.0-5.4) 10^6/ul Hgb (14.0-18.0) g/dl Hct (42-52) % MCV (80-94) fL MCH (27-31) pg MCHC (31-36) g/dl RDW (10.5-15) % Plt Count (150-450) 10^3/ul MPV (7.4-10.4) um3 Immature Gran % (Auto) (0-9) % Absolute Neuts (auto) (1.5-7.7) 10^3/ul Absolute Lymphs (auto) (1.0-4.8) 10^3/ul Absolute Monos (auto) (0-0.8) 10^3/ul Absolute Eos (auto) (0-0.6) 10^3/ul Absolute Basos (auto) (0-0.2) 10^3/ul Absolute Nucleated RBC 10^3/ul Neutrophils % (38-83) % Band Neutrophils % (0-8) % Lymphocytes % (25-47) % Metamyelocytes % (0-2) % Normal RBC Morphology (Normal) INR (Anticoag Therapy) (0.89-1.11) Sodium 137 (133-145) mmol/L Potassium 3.2 L (3.5-5.0) mmol/L Chloride 107 (101-111) mmol/L Carbon Dioxide 21 L (22-32) mmol/L Anion Gap 9 (2-11) mmol/L BUN 10 (6-24) mg/dL Creatinine 0.96 (0.67-1.17) mg/dL Est GFR ( Amer) 98.7 (>60) Est GFR (Non-Af Amer) 76.8 (>60) BUN/Creatinine Ratio 10.4 (8-20) Glucose 123 H (70-100) mg/dL Lactic Acid 3.6 H* (0.5-2.0) mmol/L Calcium 8.5 L (8.6-10.3) mg/dL Total Bilirubin 2.90 H (0.2-1.0) mg/dL AST 192 H (13-39) U/L ALT 167 H (7-52) U/L Alkaline Phosphatase 310 H (34-104) U/L Troponin I 0.01 (<0.04) ng/mL Total Protein 5.9 L (6.4-8.9) g/dL Albumin 3.5 (3.2-5.2) g/dL Globulin 2.4 (2-4) g/dL Albumin/Globulin Ratio 1.5 (1-3) Lipase 63 (11.0-82.0) U/L Urine Color Urine Appearance Urine pH (5-9) Ur Specific [place] (1.010-1.030) Urine Protein (Negative) Urine Ketones (Negative) Urine Blood (Negative) Urine Nitrate (Negative) Urine Bilirubin (Negative) Urine Urobilinogen (Negative) Ur Leukocyte Esterase (Negative) Urine WBC (Auto) (Absent) Urine RBC (Auto) (Absent) Urine Bacteria (Absent) Urine Glucose (Negative) Assess/Plan/Problems-Billing Assessment: 75 yo M w unresectable pancreatic cancer sp biliary stent 03/21/2016 sp gemcitabine/abraxance 10 days ago with fevers, transaminitis, RUQ pain and bacteremia. s/p clogged stent exchange by Dr. Herman on 05/04/16 - Patient Problems (1) Cholangitis Comment: due to clogged stent with subsequent E. coli bacteremia Cont Zosyn stent replaced by Dr. Herman on 05/04/16 Repeat blood cx pending LFT's improving (2) Pancreatic mass Comment: cancer, s/p chemo, as per oncology (3) Hypothyroidism Comment: copnt levothyroxine (4) DVT prophylaxis Comment: heparin sc
[2016-05-05] MEDS: Heparin VIAL(*) 5000 UNITS/ML VIAL (FIVE THOUSAND) SUBCUT SCH (21:41)
[2016-05-05] MEDS: Pantoprazole IV* 40 MG IV SCH (21:41)
[2016-05-06] MEDS: Levothyroxine TAB* 100 MCG TAB PO SCH (05:42)
[2016-05-06] MEDS: Piperac/Tazob 3.375 gm in NS* 3.375 GM/100 ML BAG IVPB SCH (05:42)
[2016-05-06] MEDS: Heparin VIAL(*) 5000 UNITS/ML VIAL (FIVE THOUSAND) SUBCUT SCH (05:43)
[2016-05-06 06:08] VITALS: BP 114/70
[2016-05-06 08:43] LABS: Hematocrit 33 % (42-52); Hemoglobin 10.9 g/dl (14.0-18.0); Mean Corpuscular HGB Conc 34 g/dl (31-36); Mean Corpuscular Hemoglobin 30 pg (27-31); Mean Corpuscular Volume 88 fL (80-94); Mean Platelet Volume 9 um3 (7.4-10.4); Red Blood Count 3.69 10^6/ul (4.0-5.4); Red Cell Distribution Width 14 % (10.5-15); White Blood Count 9.6 10^3/ul (3.5-10.8)
[2016-05-06 08:44] LABS: Comments Flag Yes
[2016-05-06] MEDS ORDERED: NS 0.9% IVPB ONE (08:47)
[2016-05-06] MEDS ORDERED: CEFTRIAXONE IVPB ONE (08:47)
[2016-05-06 08:58] LABS: Albumin 2.9 g/dL (3.2-5.2); BUN/Creatinine Ratio 14.6 (8-20); Calcium 8.5 mg/dL (8.6-10.3); EGFR African American 98.7 (>60); EGFR Non-African American 76.8 (>60); Globulin 2.4 g/dL (2-4); Potassium 3.8 mmol/L (3.5-5.0); Total Bilirubin 1.9 mg/dL (0.2-1.0); Total Protein 5.3 g/dL (6.4-8.9)
--- NOTE | 2016-05-06 09:10 | DS ---
- Discharge Summary ADMIT DATE:05/03/2016 DISCHARGE DATE:05/06/2016 DISCHARGE DIAGNOSIS: 1. cholangitis 2. infected biliary stent 3. e coli bacteremia 4. sepsis secondary to above 5. locally advanced pancreatic cancer on chemotherapy 6. thrombocytopenia from above DISCHARGE MEDICATIONS: Aspirin (Aspirin Low Dose Tab*) 81 mg PO DAILY [facility] Cyanocobalamin (Vitamin B12 Tab*) 1,000 mcg PO DAILY [facility] Levothyroxine Sodium (Synthroid Tab*) 100 mcg PO DAILY@0600 [facility] Omeprazole 20 mg po daily zocor 20 mg daily zofran 4 mg po q4 hr prn nausea compazine 10 mg po q6 hr prn nausea levaquin 500 mg po daily x 4 weeks DISCHARGE FOLLOW UP: 1. Labs 05/09/2016 2. chemotherapy 05/10/2016 HOSPITAL COURSE: Mr. Cook was admitted on 05/03 with abdominal pain, fever, transaminitis, and hypotension. he was started on zosyn IV. he was bacteremic with e coli. He was seen in consultation by Dr. Herman and had his biliary stent changed on with pus draining after new stent placed. He defervesced and felt markedly better. He will be discharged on a prolonged course of PO antibiotics (levaquin). he will have labs on and his chemotherapy as planned on Friday, which will be cycle 1 day 15. >30 mins spent on this discharge >50% in face to face counseling
[2016-05-06] MEDS: Cyanocobalamin INJ * 1,000 MCG/ML VIAL 1 ML VIAL IM SCH (09:20)
[2016-05-06] MEDS: Aspirin Low Dose CHEW TAB* 81 MG PO SCH (09:20)
[2016-05-06] MEDS: Cyanocobalamin TAB* 500 MCG PO SCH (09:21)
== END 2016-05-06 11:25 | disposition home or self-care (01) | DRG 919 ==
LOC: ED 10:04 → MED 16:12 → ICU 05-04 09:07 → MED 05-05 17:42
PROVIDERS: ADMIT Internal Medicine Hematology & Oncology; ATTEND Internal Medicine Hematology & Oncology
PROC: 0FPB8DZ Removal of Intraluminal Device from Hepatobiliary Duct, Via Natural or Artificial Opening Endoscopic (ICD-10-PCS; principal; 2016-05-03)
PROC: 0F798DZ Dilation of Common Bile Duct with Intraluminal Device, Via Natural or Artificial Opening Endoscopic (ICD-10-PCS; 2016-05-03)
DX: T85.79XA Infection and inflammatory reaction due to other internal prosthetic devices, implants and grafts, initial encounter (principal); A41.51 Sepsis due to Escherichia coli [E. coli]; K83.0 Cholangitis; D69.59 Other secondary thrombocytopenia; K21.9 Gastro-esophageal reflux disease without esophagitis; C25.0 Malignant neoplasm of head of pancreas; E78.00 Pure hypercholesterolemia, unspecified; F17.210 Nicotine dependence, cigarettes, uncomplicated; Z98.42 Cataract extraction status, left eye; Z98.41 Cataract extraction status, right eye; Z80.1 Family history of malignant neoplasm of trachea, bronchus and lung; Z80.0 Family history of malignant neoplasm of digestive organs; E80.6 Other disorders of bilirubin metabolism; Y84.8 Other medical procedures as the cause of abnormal reaction of the patient, or of later complication, without mention of misadventure at the time of the procedure; Y92.9 Unspecified place or not applicable; E03.9 Hypothyroidism, unspecified; T45.1X5A Adverse effect of antineoplastic and immunosuppressive drugs, initial encounter; Z79.82 Long term (current) use of aspirin; J44.9 Chronic obstructive pulmonary disease, unspecified; R91.1 Solitary pulmonary nodule
CPT/HCPCS: 36415; 71010; 74020; 74177; 74330; 78226; 80053; 81003; 81015; 82248; 82607; 83605; 83690; 83735; 84484; 85025; 85060; 85610; 85730; 87040; 87077; 87150; 87186; 87205; 94760; 99223; 99233; 99239; 99406; A9270-GY; A9537; C1769; C1874; J0696; J1100; J1170; J1642; J1644; J2250; J2270; J2310; J2405; J2543; J2704; J3010; J3420; J3430; J3475; Q9967